=== PATIENT | female | born 1965 | race Caucasian/White ===

== ENCOUNTER 2017-10-02 00:25 | Emergency (ER) | payer MEDICARE, OTHER ==
[2017-10-02 01:03] LABS: AGAP ISTAT 17 mmol/L (6-14); BUN ISTAT 14 mg/dL (8-26); CHLORIDE ISTAT 101 mmol/L (98-110); CREATININE ISTAT 0.7 mg/dL (0.5-1.4); GLUCOSE ISTAT 147 mg/dL (70-99); HEMATOCRIT ISTAT 39 % (36-40); HEMOGLOBIN ISTAT 13.3 g/dL (12-15); ION CA ISTAT 1.18 mmol/L (1.13-1.32); POTASSIUM ISTAT 3.7 mmol/L (3.5-5.0); SODIUM ISTAT 140 mmol/L (135-145); TOT CO2 ISTAT 27 mmol/L (23-32)
== END 2017-10-02 01:42 | disposition home or self-care (01) ==
LOC: ER 00:25
DX: R53.1 Weakness (principal); R05 Cough; F41.9 Anxiety disorder, unspecified; E11.9 Type 2 diabetes mellitus without complications; I10 Essential (primary) hypertension; J44.9 Chronic obstructive pulmonary disease, unspecified; F17.200 Nicotine dependence, unspecified, uncomplicated; Z88.5 Allergy status to narcotic agent; Z88.6 Allergy status to analgesic agent
CPT/HCPCS: 36415; 71046; 80047; 84484; 85014; 85018; 93005; 99284-25